=== PATIENT | female | born 2000 | race African-American/Black ===

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

== ENCOUNTER 2018-06-03 09:10 | Emergency (ER) | payer MEDICAID ==
[~2018-06-03] VITALS: Ht 172.7 cm; Wt 79.4 kg
[2018-06-03 09:31] VITALS: BP 113/77
[2018-06-03] MEDS ORDERED: Bacitracin Oint UD TOPIC ONE (09:45)
[2018-06-03] MEDS ORDERED: Tetanus/Diptheria/Pertussis Vaccine 0.5ml Syr IM ONE (09:45)
[2018-06-03 10:14] LABS: APPEARANCE,URINE SLIGHTLY CLOUDY; BILIRUBIN, URINE NEGATIVE (NEGATIVE); GLUCOSE, URINE (UA) NEGATIVE (NEGATIVE); KETONES,URINE 1+ (NEGATIVE); LEUKOCYTE ESTERASE ,URINE 1+ (NEGATIVE); NITRITE,URINE NEGATIVE (NEGATIVE); PH,URINE 5 (4.5-8.0); PROTEIN,URINE 2+ (NEGATIVE); UROBILINOGEN,URINE 1 MG/DL (0.0-1.0)
[2018-06-03 10:27] LABS: COLOR,URINE YELLOW
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
[2018-06-03] MEDS ORDERED: IBUPROFEN600 MG ORAL (11:00)
[2018-06-03] MEDS ORDERED: TYLENOL325 MG ORAL (11:00)
[2018-06-03 11:17] VITALS: BP 114/76
== END 2018-06-03 11:20 | disposition home or self-care (01) ==
LOC: EMR 09:49
DX: S10.91XA Abrasion of unspecified part of neck, initial encounter (principal); S20.419A Abrasion of unspecified back wall of thorax, initial encounter; Y04.2XXA Assault by strike against or bumped into by another person, initial encounter; Y92.9 Unspecified place or not applicable; R10.9 Unspecified abdominal pain; Z23 Encounter for immunization; J45.909 Unspecified asthma, uncomplicated
CPT/HCPCS: 81003; 81025; 90471; 90715; 99283

== ENCOUNTER 2018-07-30 15:50 | Emergency (ER) | payer MEDICAID ==
[~2018-07-30] VITALS: Ht 172.7 cm; Wt 77.1 kg
[~2018-07-30 15:50] MED LIST changes: +IBUPROFEN600 MG ORAL; +TYLENOL325 MG ORAL
[2018-07-30] MEDS ORDERED: NKM (15:57)
--- NOTE | 2018-07-30 16:22 | Emergency Room Report ---
History of Present Illness General Chief Complaint: Female Urogenital Problems Source: Patient Present Illness HPI 18-year-old female presents to the emergency department complaining of heavy vaginal bleeding 1 week. Patient states that earlier this month she took the morning-after pill. Patient states that her periods are usually do on the ninth of each month and this is abnormal timing for her. Patient states that her periods generally lasts no more than 5 days. She reports fatigue and states that she has been told in the past that she was anemic. Patient denies syncope, dizziness or lightheadedness. Patient denies chest pain or palpitations. She reports 1 out of 10 in severity lower abdominal cramping and some low back pain. she denies urinary frequency, urgency, dysuria or hematuria. Patient denies at this time however she states she is not sure. Allergies: Coded Allergies: No Known Allergies (Unverified , 09/09/17) Patient History Past Medical History: see triage record Past Surgical History: none Pertinent Family History: none Now: No Reviewed Nursing Documentation: PMH: Agreed; PSxH: Agreed Nursing Documentation-PMH Past Medical History: No History, Except For Hx Asthma: Yes Review of Systems All Other Systems: negative except mentioned in HPI Physical Exam Vital Signs Date Time Temp Pulse Resp B/P (MAP) Pulse Ox O2 Delivery O2 Flow Rate FiO2 07/30/18 15:52 98.8 59 16 117/73 98 Room Air Sp02 EP Interpretation: reviewed, normal General Appearance: no apparent distress, alert, GCS 15, non-toxic Head: normocephalic, atraumatic Eyes: bilateral eye normal inspection, bilateral eye PERRL ENT: hearing grossly normal, normal voice Neck: full range of motion Respiratory: lungs clear, normal breath sounds, speaking full sentences Cardiovascular #1: regular rate, rhythm Gastrointestinal: normal bowel sounds, non tender, soft Rectal: deferred Genitourinary: normal inspection, no CVA tenderness, adnexa normal Musculoskeletal: back normal, gait/station normal, normal range of motion Neurologic: alert, oriented x3, responsive, motor strength/tone normal, sensory intact, speech normal, grossly normal Psychiatric: judgement/insight normal Skin: normal color, no rash, warm/dry, well hydrated Medical Decision Making PA Attestation Dr. Mims is my supervising Physician whom patient management has been discussed with. Diagnostic Impression: Primary Impression: Menorrhagia Qualified Codes: N92.0 - Excessive and frequent menstruation with regular cycle ER Course 18-year-old female presents to the emergency department complaining of heavy vaginal bleeding 1 week. Patient states that earlier this month she took the morning-after pill. Patient states that her periods are usually do on the ninth of each month and this is abnormal timing for her. Patient states that her periods generally lasts no more than 5 days. She reports fatigue and states that she has been told in the past that she was anemic. Patient denies syncope, dizziness or lightheadedness. Patient denies chest pain or palpitations. She reports 1 out of 10 in severity lower abdominal cramping and some low back pain. she denies urinary frequency, urgency, dysuria or hematuria. Patient denies at this time however she states she is not sure. Ddx considered but are not limited to: Fibroid, ectopic , Fibroid, Spontaneous , DUB, metrorrhagia, menorrhagia, irregular cycles, miscarriage just to name a few. Vital signs: are WNL, pt. is afebrile H&PE are most consistent with: Menorrhagia most likely secondary to hormone disruption from taking plan B. ORDERS: -Urine hcg- negative -UA:WNL ED INTERVENTIONS: -Motrin Denies hx of migraines. I discussed with this patient that normal side effect from taking Plan B is irregular heavy periods which usually may last from 3-6 months after taking the pill. However I told patient that she needs to follow-up with a blasting entryman or her primary care provider to continue any management. Discussed the patient that she'll be started on oral control medication for 2 reasons one to stop current vaginal bleeding and to to prevent need to take plan B in the near future. Discussed with her not having unprotected intercourse for the first week of taking medication as he needs to build up in her system. Patient is given strict ED return precautions for worsening or new symptoms. I also told patient that I'll be prescribing her some iron pills temporarily and also the control medication that has been chosen for her Will also contain iron as well. DISCHARGE: At this time pt. is stable for d/c to home. Will provide printed patient care instructions, and any necessary prescriptions. Care plan and follow up instructions have been discussed with the patient prior to discharge. Labs Test 07/30/18 16:00 Urine HCG, Qualitative Negative (NEGATIVE) Last Vital Signs Date Time Temp Pulse Resp B/P (MAP) Pulse Ox O2 Delivery O2 Flow Rate FiO2 07/30/18 15:52 98.8 59 16 117/73 98 Room Air Disposition: HOME, SELF-CARE Condition: Stable Scripts Ibuprofen* (MOTRIN*) 600 Mg Tablet 600 MG ORAL THREE TIMES A DAY, #30 TAB 0 Refills Prov: Sarah Romero 07/30/18 Iron,Carbonyl/Ascorbic Acid (IRON 100-VITAMIN C TABLET) 1 Each Tablet 1 EACH PO DAILY for 7 Days, #7 TAB Prov: Sarah Romero 07/30/18 Norethindrone-E.estradiol-Iron ([place] Fe 1.5-30 Tablet) 1 Each Tablet 1 EACH PO DAILY, #30 TAB 2 Refills Prov: Sarah Romero 07/30/18 Referrals: NON PHYSICIAN (PCP) Patient Instructions: Menorrhagia, [id number] Additional Instructions: Take medications as directed. Follow up with a PCP or GYNOCOLOGIST within 3-5 days, even if your symptoms have resolved. Return sooner to ED if new symptoms occur, or current symptoms become worse. - Please note that this Emergency Department Report was dictated using [employer] technology software, occasionally this can lead to erroneous entry secondary to interpretation by the dictation equipment. Sarah Romero Jul 30, 2018 16:22
[2018-07-30] MEDS ORDERED: IBUPROFEN600 MG ORAL (16:24)
[2018-07-30] MEDS ORDERED: BLISOVI FE 1.51 EACH PO (16:24)
[2018-07-30] MEDS ORDERED: IRON 100-VITAM1 EACH PO (16:24)
[2018-07-30 16:41] VITALS: BP 115/76
== END 2018-07-30 16:41 | disposition home or self-care (01) ==
LOC: EMR 16:14
DX: N92.0 Excessive and frequent menstruation with regular cycle (principal); J45.909 Unspecified asthma, uncomplicated
CPT/HCPCS: 81025; 99283